=== PATIENT | male | born 1960 | race Caucasian/White ===

== ENCOUNTER → 2017-09-11 | Outpatient (CLI) | payer MEDICAID | END | disposition home or self-care (01) | LOC: WOUND 09:15 | PROVIDERS: ATTEND Family Medicine | DX: T22.31 Burn of third degree of forearm (principal); T23.302D Burn of third degree of left hand, unspecified site, subsequent encounter; T23.301D Burn of third degree of right hand, unspecified site, subsequent encounter; T31.30 Burns involving 30-39% of body surface with 0% to 9% third degree burns; E44.0 Moderate protein-calorie malnutrition; D63.1 Anemia in chronic kidney disease; D69.59 Other secondary thrombocytopenia; R73.9 Hyperglycemia, unspecified; F12.90 Cannabis use, unspecified, uncomplicated; F17.210 Nicotine dependence, cigarettes, uncomplicated; X08.8XXD Exposure to other specified smoke, fire and flames, subsequent encounter | CPT/HCPCS: 87070; 87077; 87186; 87205; 99213 ==

== ENCOUNTER → 2017-09-13 | Outpatient (CLI) | payer MEDICAID | END | disposition home or self-care (01) | LOC: WOUND 13:23 | PROVIDERS: ATTEND Family Medicine | DX: T22.322 Burn of third degree of left elbow (principal); T22.3 Burn of third degree of shoulder and upper limb, except wrist and hand; T23.302D Burn of third degree of left hand, unspecified site, subsequent encounter; S40.8 Other superficial injuries of upper arm; E44.0 Moderate protein-calorie malnutrition; D63.1 Anemia in chronic kidney disease; D69.59 Other secondary thrombocytopenia; R73.9 Hyperglycemia, unspecified; F12.90 Cannabis use, unspecified, uncomplicated; F17.210 Nicotine dependence, cigarettes, uncomplicated; T31.30 Burns involving 30-39% of body surface with 0% to 9% third degree burns; X97.XXXD Assault by smoke, fire and flames, subsequent encounter | CPT/HCPCS: 97597 ==

== ENCOUNTER → 2017-09-18 | Outpatient (CLI) | payer MEDICAID | END | disposition home or self-care (01) | LOC: WOUND 10:02 | PROVIDERS: ATTEND Internal Medicine | DX: T22.322 Burn of third degree of left elbow (principal); S51.002D Unspecified open wound of left elbow, subsequent encounter; T31.30 Burns involving 30-39% of body surface with 0% to 9% third degree burns; L02.414 Cutaneous abscess of left upper limb; E44.0 Moderate protein-calorie malnutrition; D69.59 Other secondary thrombocytopenia; F17.210 Nicotine dependence, cigarettes, uncomplicated; F12.90 Cannabis use, unspecified, uncomplicated; X97.XXXD Assault by smoke, fire and flames, subsequent encounter | CPT/HCPCS: 97597 ==

== ENCOUNTER → 2017-10-02 | Outpatient (CLI) | payer MEDICAID | END | disposition home or self-care (01) | LOC: WOUND 11:00 | PROVIDERS: ATTEND Internal Medicine | DX: T22.322 Burn of third degree of left elbow (principal); T31.30 Burns involving 30-39% of body surface with 0% to 9% third degree burns; R73.9 Hyperglycemia, unspecified; E44.0 Moderate protein-calorie malnutrition; D63.1 Anemia in chronic kidney disease; D69.59 Other secondary thrombocytopenia; F12.90 Cannabis use, unspecified, uncomplicated; F17.210 Nicotine dependence, cigarettes, uncomplicated; X08.8XXD Exposure to other specified smoke, fire and flames, subsequent encounter | CPT/HCPCS: 99213 ==

== ENCOUNTER 2018-06-22 15:38 | Emergency (ER) | payer MEDICAID ==
--- NOTE | 2018-06-22 16:14 | NUR ---
Called for triage, no answer
--- NOTE | 2018-06-22 16:18 | NUR ---
Attempted to call patient for triage, no answer.
--- NOTE | 2018-06-22 16:38 | NUR ---
CALLED FOR TRIAGE, NA
== END 2018-06-22 17:59 | disposition left against medical advice (07) ==
LOC: ED 17:53
DX: R21 Rash and other nonspecific skin eruption (principal); Z53.21 Procedure and treatment not carried out due to patient leaving prior to being seen by health care provider

== ENCOUNTER 2018-07-09 14:49 | Emergency (ER) | payer MEDICAID ==
[~2018-07-09] VITALS: Ht 180.3 cm; Wt 91.9 kg
[2018-07-09 15:29] LABS: BASOPHILS # (AUTO) 0.03 x10^3/uL (0-0.1); BASOPHILS % (AUTO) 0 % (0-1); EOSINOPHILS # (AUTO) 0.63 x10^3/uL (0-0.4); EOSINOPHILS % (AUTO) 8 % (1-7); LYMPHOCYTES # (AUTO) 1.46 x10^3/uL (1-3.4); LYMPHOCYTES % (AUTO) 17 % (22-44); MD NO; MEAN CORPUSCULAR HEMOGLOBIN 28.8 pg (27.5-34.5); MEAN CORPUSCULAR HGB CONC 33.7 g/dL (33.2-36.2); MEAN CORPUSCULAR VOLUME 85.4 fL (81-97); MEAN PLATELET VOLUME 8.4 fL (7.4-10.4); MONOCYTES # (AUTO) 1.14 x10^3/uL (0.2-0.8); MONOCYTES % (AUTO) 14 % (2-9); NEUTROPHILS # (AUTO) 5.16 x10^3/uL (1.8-6.8); NEUTROPHILS % (AUTO) 61 % (42-75); PLATELET COUNT 230 x10^3/uL (130-400); RED BLOOD COUNT 5.15 x10^6/uL (4.38-5.82)
--- NOTE | 2018-07-09 16:10 | NUR ---
TO ROOM FROM LOBBY. NAD.
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
--- NOTE | 2018-07-09 17:08 | NUR ---
Pt resting on jose d, no complaint/concern for RN at this time.
[2018-07-09 17:43] LABS: ANION GAP 4 mmol/L (5-15); CALCIUM 8.4 mg/dL (8.5-10.1); CHLORIDE 107 mmol/L (98-107); CREATININE 1.05 mg/dL (0.7-1.3)
--- NOTE | 2018-07-09 18:04 | NUR ---
Pt resting on jose d, no complaint/concern for RN at this time.
[2018-07-09 18:59] VITALS: BP 150/84
--- NOTE | 2018-07-09 19:02 | NUR ---
Patient/Caregiver given discharge instructions and they have confirmed that they understand the instructions. Patient ambulatory with steady gait.
== END 2018-07-09 19:03 | disposition home or self-care (01) ==
LOC: ED 18:12
DX: R20.2 Paresthesia of skin (principal)
CPT/HCPCS: 36415; 80048; 85025; 99284